=== PATIENT | male | born 1990 | race Caucasian/White ===

== ENCOUNTER 2018-08-28 13:07 | Emergency (ER) | payer OTHER ==
[~2018-08-28] VITALS: Ht 180.3 cm; Wt 97.5 kg
[~2018-08-28 13:07] MED LIST: ACIPHEX 20 MG T20 MG PO; ADDERALL XR 1010 MG PO; CLARITIN10 MG PO; FLEXERIL PO; NOHOMEMEDICATIONS; VICODIN 5-5001 EACH PO; XANAX 0.25 MG0.25 MG PO; XANAX1 MG PO; ZOLOFT50 MG PO
[2018-08-28 13:54] LABS: HEMATOCRIT 42.6 % (42.0-52.0); HEMOGLOBIN 14.3 gm/dL (14.0-18.0); MCH 29.8 pg (26.0-34.0); MCHC 33.6 g/dL (28.0-37.0); MCV 88.6 fL (80.0-100.0); MPV 8.1 fl. (7.2-11.1); NUCLEATED RBCS 0 /100WBC; PLATELET COUNT* 268 thou/uL (150-400); RBC 4.81 mil/uL (4.50-6.00); RDW-CV 13.3 % (10.5-14.5); WBC 7.1 thou/uL (4.0-11.0)
[2018-08-28 14:10] LABS: ALBUMIN 3.7 g/dL (3.4-5.0); CALCIUM 8.6 mg/dL (8.5-10.1); POTASSIUM 3.9 mmol/L (3.5-5.1); TOTAL BILIRUBIN 0.2 mg/dL (<0.1-1.0); TOTAL PROTEIN 7.3 g/dL (6.4-8.2)
[2018-08-28 14:14] LABS: INFLUENZA B ANTIGEN None Detected (None Detect)
[2018-08-28 14:36] LABS: ABSOLUTE LYMPHOCYTES 0.9 thou/uL (0.8-5.3); ABSOLUTE MONOCYTES 0.7 thou/uL (0.0-1.2); ABSOLUTE NEUTROPHILS 5.5 thou/uL (1.6-8.1); PLATELET ESTIMATE ADEQUATE
[2018-08-28] MEDS ORDERED: TESSALON PERLE100 MG PO (14:43)
[2018-08-28] MEDS ORDERED: VENTOLIN HFA 1818 GM INH (14:43)
[2018-08-28] MEDS ORDERED: MEDROLDOSEPACK PO (14:43)
[2018-08-28 14:59] VITALS: BP 133/75
== END 2018-08-28 14:59 | disposition home or self-care (01) ==
LOC: M.ERS 13:07
PROVIDERS: Nurse Practitioner Family
DX: J10.1 Influenza due to other identified influenza virus with other respiratory manifestations (principal); F41.0 Panic disorder [episodic paroxysmal anxiety]; F90.9 Attention-deficit hyperactivity disorder, unspecified type